=== PATIENT | female | born 1945 | race Caucasian/White ===

== ENCOUNTER 2023-11-01 09:40 | Day surgery (SDC) | payer MEDICARE, OTHER ==
[2023-11-01] MEDS ORDERED: Decadron 4 MG INJ IV ONE (09:41)
[2023-11-01] MEDS ORDERED: Sodium Chloride 0.9(Preservative Free) 10 ML IJ ONE (09:41)
[2023-11-01] MEDS ORDERED: DIPRIVAN 200 MG/20 ML IV ONE (11:49)
[2023-11-01] MEDS ORDERED: Lactated Ringers 1,000 ML IV ONE (12:17)
--- NOTE | 2023-11-01 14:45 | XRAY ---
Indication: Left L4-S1 transforaminal LINDA. Intraoperative fluoroscopy provided for 38 seconds. 5 digital spot images submitted for interpretation demonstrates posterior needle tips projecting over the expected left L4 and L5 nerve roots. Small amount of contrast injected for needle tip placement. Correlate with intraoperative findings/report.
--- NOTE | 2023-11-01 14:47 | XRAY ---
38 seconds of fluoroscopy was used in surgery for a left L4-S1 transforaminal LINDA.
== END 2023-11-01 12:17 | disposition home or self-care (01) ==
LOC: SDC-PAIN 09:40
PROVIDERS: ATTEND Psychiatry & Neurology Pain Medicine
DX: M54.16 Radiculopathy, lumbar region (principal); E11.9 Type 2 diabetes mellitus without complications
CPT/HCPCS: 64483; 64484; 72100; 77002; 82947; J1100; J2704; Q9966

== ENCOUNTER 2024-03-06 08:20 | Day surgery (SDC) | payer MEDICARE, OTHER ==
[2024-03-06] MEDS ORDERED: Sodium Chloride 0.9(Preservative Free) 10 ML IJ ONE (08:21)
[2024-03-06] MEDS ORDERED: Decadron 4 MG INJ IV ONE (08:21)
[2024-03-06] MEDS ORDERED: D50W 50 ml Abboject IV ONE (09:30)
[2024-03-06] MEDS ORDERED: Lactated Ringers 1,000 ML IV ONE (10:05)
[2024-03-06] MEDS ORDERED: DIPRIVAN 200 MG/20 ML IV ONE (10:34)
--- NOTE | 2024-03-06 13:18 | XRAY ---
Indication: Left L4-S1 transforaminal LINDA. Intraoperative fluoroscopy provided for 29 seconds. 4 digital spot images submitted for interpretation demonstrates posterior needle tips projecting over the expected left L4 and L5 nerve roots. Small amount of contrast injected for needle tip placement. Correlate with intraoperative findings/report.
--- NOTE | 2024-03-06 13:24 | XRAY ---
29 seconds of fluoroscopy was used in for a left L4-S1 transforaminal LINDA.
== END 2024-03-06 11:15 | disposition home or self-care (01) ==
LOC: SDC-PAIN 08:20
PROVIDERS: ATTEND Psychiatry & Neurology Pain Medicine
DX: M54.16 Radiculopathy, lumbar region (principal); E11.9 Type 2 diabetes mellitus without complications
CPT/HCPCS: 64483; 64484; 72100; 77003; 82947; J1100; J2704; Q9966

== ENCOUNTER 2024-04-17 11:36 | Day surgery (SDC) | payer MEDICARE, OTHER ==
[2024-04-17] MEDS ORDERED: Sodium Chloride 0.9(Preservative Free) 10 ML IJ ONE (11:37)
[2024-04-17] MEDS ORDERED: Depo-Medrol 40 MG/ML IM ONE (11:37)
[2024-04-17] MEDS ORDERED: BUPIVACAINE 0.5% VIAL IJ ONE (11:37)
[2024-04-17] MEDS ORDERED: DIPRIVAN 200 MG/20 ML IV ONE (13:29)
[2024-04-17] MEDS ORDERED: Lactated Ringers 1,000 ML IV ONE (14:34)
--- NOTE | 2024-04-17 15:09 | XRAY ---
13 seconds of fluoroscopy was used in surgery for a lumbar LINDA.
--- NOTE | 2024-04-17 15:09 | XRAY ---
Indication: Lumbar LINDA. Intraoperative fluoroscopy provided for 13 seconds. Single lateral digital spot image submitted for interpretation demonstrates needle tip projecting posterior to lumbosacral junction interspace. Small amount of contrast injected for needle tip placement. Correlate with intraoperative findings/report.
== END 2024-04-17 13:55 ==
LOC: SDC-PAIN 11:36
PROVIDERS: ATTEND Psychiatry & Neurology Pain Medicine
DX: M54.16 Radiculopathy, lumbar region (principal); E11.9 Type 2 diabetes mellitus without complications
CPT/HCPCS: 62323; 72100; 77003; 82947; J2704; Q9966

== ENCOUNTER 2025-04-10 09:16 | Day surgery (SDC) | payer MEDICARE, OTHER ==
[2025-04-10] MEDS ORDERED: LIDOCAINE HCL 1% 50 MG/5 ML VL IJ ONE (09:17)
[2025-04-10] MEDS ORDERED: Sodium Chloride 0.9(Preservative Free) 10 ML IJ ONE (09:17)
[2025-04-10] MEDS ORDERED: Depo-Medrol 40 MG/ML IM ONE (09:17)
[2025-04-10] MEDS ORDERED: propofoL IV ONE (11:15)
--- NOTE | 2025-04-10 12:14 | XRAY ---
Indication: Lumbar LINDA . Intraoperative fluoroscopy provided for 18 seconds. 3 digital spot image submitted for interpretation demonstrates posterior needle tip projecting over last lumbar segment. Small amount of contrast injected for needle tip placement. Correlate with intraoperative findings/report.
--- NOTE | 2025-04-10 12:18 | XRAY ---
18 seconds of fluoroscopy was used in surgery for a lumbar LINDA.
[2025-04-10] MEDS ORDERED: Lactated Ringers 1,000 ML IV ONE (12:19)
== END 2025-04-10 11:45 | disposition home or self-care (01) ==
LOC: SDC-PAIN 09:16
PROVIDERS: ATTEND Psychiatry & Neurology Pain Medicine
DX: M54.16 Radiculopathy, lumbar region (principal); E11.9 Type 2 diabetes mellitus without complications